=== PATIENT | female | born 1975 | race Caucasian/White ===

== ENCOUNTER 2016-08-20 09:50 | Emergency (ER) | payer BC ==
[~2016-08-20] VITALS: Ht 154.9 cm; Wt 87.0 kg
[2016-08-20 09:55] VITALS: BP 163/113; PULSE 132; RESP 16; TEMP 99.7; O2SAT 97
[2016-08-20] MEDS ORDERED: SODIUM CHLOR 0.9% 1000 ML INJ 1,000 ML IV SCH (10:09)
[2016-08-20 10:14] VITALS: O2SAT 98
[2016-08-20] MEDS ORDERED: FAMOTIDINE 20 MG/2 ML VIAL IV PUSH ONE (10:15)
[2016-08-20] MEDS ORDERED: ONDANSETRON HCL 4 MG/2 ML VIAL IVP ONE (10:15)
[2016-08-20] MEDS ORDERED: DICYCLOMINE HCL 10 MG CAP PO ONE (10:15)
[2016-08-20] MEDS ORDERED: SODIUM CHLORIDE 0.9% FLUSH 10 ML FLUSH IV FLUSH PRN (10:15)
--- NOTE | 2016-08-20 10:16 | PD ---
HPI Chief Complaint: GI Complaint Time Seen by Provider: 10:01 Travel History International Travel<30 days: No Contact w/Intl Traveler<30days: No Traveled to known affect area: No History of Present Illness HPI The patient is a 41-year-old female who presents emergency department for nausea, vomiting, diarrhea, and intermittent abdominal pain and cramping. The patient states her symptoms started at approximately 9 PM last night with nausea that was followed by vomiting. The patient then had vomiting throughout the night, ending this morning approximate 7 AM. The patient did take a Phenergan 12.5 mg tablet at home with mild alleviation of her symptoms. She also complains of diarrhea which she describes as loose to watery, dark, without any visible blood. She also notes a foul smell to the diarrhea. She does state her son had an episode of nausea and vomiting earlier this week, but had no diarrhea and his symptoms improved within 24 hours. She denies any recent international travel, drinking well water, or taking antibiotics. She denies any previous history of C. difficile. She does have a previous history of section, denies any other abdominal surgeries. She denies any coming fever, chills, or sweats. Symptoms are moderate, slightly alleviated by Phenergan, and possibly exacerbated by exposure to viral gastroenteritis earlier in the week that affected her son. [facility] Past Medical History Narrative Medical On Wellbutrin for weight loss Medical History: Denies Significant Hx ?: Not LMP: 08/15/2016 Past Surgical History Narrative Surgical Social History Tobacco Use: No Allergies-Medications (Allergen,Severity, Reaction): Coded Allergies: No Known Allergies (Verified , 08/20/16) Reported Meds & Prescriptions Reported Meds & Active Scripts Active Reported [Birthcontrol] 1 Tab PO DAILY Wellbutrin Xl 24 HR (Bupropion HCl) 150 Mg Tab 150 Mg PO DAILY Review of Systems Except as stated in HPI: all other systems reviewed are Neg General / Constitutional: No: Fever, Chills Cardiovascular: No: Chest Pain or Discomfort Respiratory: No: Shortness of Breath Gastrointestinal: Positive: Nausea, Vomiting, Diarrhea, Abdominal Pain Genitourinary: No: Dysuria Physical Exam Narrative GENERAL: Awake, alert, pleasant 41-year-old female who appears her stated age and is in no acute respiratory distress. SKIN: Focused skin assessment warm/dry. HEAD: Atraumatic. Normocephalic. EYES: Pupils equal and round. No scleral icterus. No injection or drainage. ENT: No nasal bleeding or discharge. Dry mucous membranes. NECK: Trachea midline. No JVD. CARDIOVASCULAR: Regular, tachycardic with a heart rate of 120. RESPIRATORY: No accessory muscle use. Clear to auscultation. Breath sounds equal bilaterally. GASTROINTESTINAL: Abdomen soft, mild epigastric tenderness, no rebound tenderness. No guarding or rigidity. MUSCULOSKELETAL: No obvious deformities. No clubbing. No cyanosis. No edema. NEUROLOGICAL: Awake and alert. No obvious cranial nerve deficits. Motor grossly within normal limits. Normal speech. PSYCHIATRIC: Appropriate mood and affect; insight and judgment normal. Data Data Last Documented VS Vital Signs Date Time Temp Pulse Resp B/P Pulse Ox O2 Delivery O2 Flow Rate FiO2 08/20/16 11:02 99 18 151/86 98 Room Air 08/20/16 09:55 99.7 Orders Complete Blood Count With Diff (08/20/16 10:09) Comprehensive Metabolic Panel (08/20/16 10:09) Lipase (08/20/16 10:09) Lactic Acid (08/20/16 10:09) Urinalysis - C+S If Indicated (08/20/16 10:09) Iv Access Insert/Monitor (08/20/16 10:09) Ecg Monitoring (08/20/16 10:09) Oximetry (08/20/16 10:09) Ondansetron Inj (Zofran Inj) (08/20/16 10:15) Sodium Chlor 0.9% 1000 Ml Inj (Ns 1000 M (08/20/16 10:09) Sodium Chloride 0.9% Flush (Ns Flush) (08/20/16 10:15) Famotidine Inj (Pepcid Inj) (08/20/16 10:15) Dicyclomine (Bentyl) (08/20/16 10:15) Urine Culture (08/20/16 10:20) Sodium Chlor 0.9% 1000 Ml Inj (Ns 1000 M (08/20/16 11:00) Ketorolac Inj (Toradol Inj) (08/20/16 11:00) Labs Laboratory Tests Test 08/20/16 10:20 White Blood Count 8.2 TH/MM3 Red Blood Count 5.11 MIL/MM3 Hemoglobin 14.8 GM/DL Hematocrit 43.0 % Mean Corpuscular Volume 84.3 FL Mean Corpuscular Hemoglobin 29.0 PG Mean Corpuscular Hemoglobin 34.5 % Concent Red Cell Distribution Width 11.5 % Platelet Count 349 TH/MM3 Mean Platelet Volume 7.5 FL Neutrophils (%) (Auto) 84.9 % Lymphocytes (%) (Auto) 5.7 % Monocytes (%) (Auto) 6.9 % Eosinophils (%) (Auto) 0.2 % Basophils (%) (Auto) 2.3 % Neutrophils # (Auto) 6.9 TH/MM3 Lymphocytes # (Auto) 0.5 TH/MM3 Monocytes # (Auto) 0.6 TH/MM3 Eosinophils # (Auto) 0.0 TH/MM3 Basophils # (Auto) 0.2 TH/MM3 CBC Comment DIFF FINAL Differential Comment Urine Collection Type CLEAN CATCH Urine Color YELLOW Urine Turbidity CLEAR Urine pH 6.0 Urine Specific [place] 1.032 Urine Protein 30 mg/dL Urine Glucose (UA) NEG mg/dL Urine Ketones NEG mg/dL Urine Occult Blood LARGE Urine Nitrite NEG Urine Bilirubin NEG Urine Leukocyte Esterase TRACE Urine RBC 20-24 /hpf Urine WBC 20-24 /hpf Urine Squamous Epithelial > 8 /hpf Cells Urine Bacteria FEW /hpf Urine Mucus FEW /lpf Microscopic Urinalysis Comment CULTURE INDICATED Urine Collection Time 10:20 Sodium Level 141 MEQ/L Potassium Level 3.3 MEQ/L Chloride Level 105 MEQ/L Carbon Dioxide Level 28.0 MEQ/L Anion Gap 8 MEQ/L Blood Urea Nitrogen 15 MG/DL Creatinine 0.95 MG/DL Estimat Glomerular Filtration 65 ML/MIN Rate Random Glucose 129 MG/DL Lactic Acid Level 1.4 mmol/L Calcium Level 8.5 MG/DL Total Bilirubin 0.7 MG/DL Aspartate Amino Transf 22 U/L (AST/SGOT) Alanine Aminotransferase 41 U/L (ALT/SGPT) Alkaline Phosphatase 69 U/L Total Protein 7.6 GM/DL Albumin 3.5 GM/DL Lipase 166 U/L [facility] Medical Decision Making Medical Screen Exam Complete: Yes Emergency Medical Condition: Yes Medical Record Reviewed: Yes Interpretation(s) Laboratory Tests Test 08/20/16 10:20 White Blood Count 8.2 TH/MM3 Red Blood Count 5.11 MIL/MM3 Hemoglobin 14.8 GM/DL Hematocrit 43.0 % Mean Corpuscular Volume 84.3 FL Mean Corpuscular Hemoglobin 29.0 PG Mean Corpuscular Hemoglobin 34.5 % Concent Red Cell Distribution Width 11.5 % Platelet Count 349 TH/MM3 Mean Platelet Volume 7.5 FL Neutrophils (%) (Auto) 84.9 % Lymphocytes (%) (Auto) 5.7 % Monocytes (%) (Auto) 6.9 % Eosinophils (%) (Auto) 0.2 % Basophils (%) (Auto) 2.3 % Neutrophils # (Auto) 6.9 TH/MM3 Lymphocytes # (Auto) 0.5 TH/MM3 Monocytes # (Auto) 0.6 TH/MM3 Eosinophils # (Auto) 0.0 TH/MM3 Basophils # (Auto) 0.2 TH/MM3 CBC Comment DIFF FINAL Differential Comment Urine Collection Type CLEAN CATCH Urine Color YELLOW Urine Turbidity CLEAR Urine pH 6.0 Urine Specific [place] 1.032 Urine Protein 30 mg/dL Urine Glucose (UA) NEG mg/dL Urine Ketones NEG mg/dL Urine Occult Blood LARGE Urine Nitrite NEG Urine Bilirubin NEG Urine Leukocyte Esterase TRACE Urine RBC 20-24 /hpf Urine WBC 20-24 /hpf Urine Squamous Epithelial > 8 /hpf Cells Urine Bacteria FEW /hpf Urine Mucus FEW /lpf Microscopic Urinalysis Comment CULTURE INDICATED Urine Collection Time 10:20 Sodium Level 141 MEQ/L Potassium Level 3.3 MEQ/L Chloride Level 105 MEQ/L Carbon Dioxide Level 28.0 MEQ/L Anion Gap 8 MEQ/L Blood Urea Nitrogen 15 MG/DL Creatinine 0.95 MG/DL Estimat Glomerular Filtration 65 ML/MIN Rate Random Glucose 129 MG/DL Lactic Acid Level 1.4 mmol/L Calcium Level 8.5 MG/DL Total Bilirubin 0.7 MG/DL Aspartate Amino Transf 22 U/L (AST/SGOT) Alanine Aminotransferase 41 U/L (ALT/SGPT) Alkaline Phosphatase 69 U/L Total Protein 7.6 GM/DL Albumin 3.5 GM/DL Lipase 166 U/L Differential Diagnosis Differential diagnosis includes gastroenteritis, viral syndrome, food poisoning , hepatitis, pancreatitis, C. difficile, enteritis, colitis, dehydration, electrolyte abnormality, food borne illness. Narrative Course IV was established, labs are drawn and sent, and the patient was placed on cardiac telemetry monitoring and continuous pulse oximetry monitoring. The patient was administered Zofran and Bentyl with IV fluids for her symptoms. She declined pain medication. The patient's laboratory evaluation is unremarkable except for mildly low potassium. The patient's heart rate did improve to 101, she was administered a second liter of IV fluids. Lactic acid is unremarkable. She had no diarrhea in the emergency department, therefore, C. difficile was not ordered. The patient be discharged home on Zofran, is advised to have a clear liquid diet and advance as tolerated. She has appointment tomorrow with her primary physician in the morning, she is advised to keep that appointment and return sooner if symptoms worsen or progress. She will also be provided a work excuse for 2 days. Diagnosis Primary Impression: Gastroenteritis Patient Instructions: General Instructions Additional Instructions: Medications as directed. Clear liquid diet and advance as tolerated. Please provide the patient a copy of her labs at discharge. Return sooner if symptoms worsen or progress. Work excuse for 2 days. Med/Other Pt SpecificInfo: Prescription(s) given Scripts Ondansetron Odt (Zofran Odt)4 Mg Tab4 Mg SL Q6HR PRN (Nausea/Vomiting) #10 TAB Ref 0 Prov:Mars Wang MD 08/20/16 Disposition: 01 DISCHARGE HOME Condition: Stable Mars Wang MD Aug 20, 2016 10:16
[2016-08-20] MEDS ORDERED: BIRTHCONTROL PO (10:17)
[2016-08-20] MEDS ORDERED: BUPR150XL PO (10:17)
[2016-08-20] MEDS ORDERED: [UNRECOGNIZED DRUG - REMARK] (10:17)
[2016-08-20 10:28] LABS: BLOOD, URINE LARGE (NEG); GLUCOSE,URINE NEG (NEG); KETONE, URINE NEG (NEG); NITRITE,URINE NEG (NEG)
[2016-08-20 10:29] LABS: AUTOMATED NEUTROPHIL # 6.9 TH/MM3 (1.8-7.7); BASOPHIL # 0.2 TH/MM3 (0-0.2); BASOPHIL % 2.3 % (0.0-2.0); EOSINOPHIL % 0.2 % (0.0-4.0); LYMPH % 5.7 % (9.0-44.0); LYMPHOCYTE # 0.5 TH/MM3 (1.0-4.8); MEAN CELL VOLUME 84.3 FL (80.0-100.0); MEAN CORPUSCULAR HGB CONC 34.5 % (32.0-36.0); MONO % 6.9 % (0.0-8.0); NEUT % 84.9 % (16.0-70.0); PLATELET COUNT 349 TH/MM3 (150-450); RED BLOOD COUNT 5.11 MIL/MM3 (4.00-5.30); RED CELL DISTRIBUTION WIDTH 11.5 % (11.6-17.2); WHITE BLOOD COUNT 8.2 TH/MM3 (4.0-11.0)
[2016-08-20 10:34] LABS: HEMO FLAGS DIFF FINAL
[2016-08-20 10:36] LABS: CHLORIDE 105 MEQ/L (98-107); POTASSIUM 3.3 MEQ/L (3.5-5.1); SODIUM (NA) 141 MEQ/L (136-145)
[2016-08-20 10:38] LABS: METHOD OF COLLECTION CLEAN CATCH; URINE COLOR YELLOW (YELLW/STRAW)
[2016-08-20 10:40] LABS: ANION GAP 8 MEQ/L (5-15); BLOOD UREA NITROGEN 15 MG/DL (7-18)
[2016-08-20 10:42] LABS: BACTERIA, URINE FEW /hpf; COMMENT (UR) CULTURE INDICATED; CULTURE IF INDICATED CULTURE INDICATED; MUCUS URINE FEW /lpf (OCC); SQUAMOUS EPITHELIAL CELL URINE > 8 /hpf (0-5)
[2016-08-20 10:43] LABS: ALT (GPT) 41 U/L (10-53); AST (GOT) 22 U/L (15-37); GLOMERULAR FILTRATION RATE 65 ML/MIN (>89)
[2016-08-20 10:45] LABS: TOTAL BILIRUBIN ADULT 0.7 MG/DL (0.2-1.0)
[2016-08-20 10:46] LABS: ALKALINE PHOSPHATASE 69 U/L (45-117)
[2016-08-20] MEDS ORDERED: SODIUM CHLOR 0.9% 1000 ML INJ 1,000 ML IV ONE (11:00)
[2016-08-20] MEDS ORDERED: KETOROLAC TROMETHAMINE 30 MG/ML (IVP) VIAL IV PUSH ONE (11:00)
[2016-08-20 11:02] VITALS: BP 151/86; PULSE 99; RESP 18; O2SAT 98
[2016-08-20] MEDS ORDERED: ZOFR4TAB3 SL (11:14)
== END 2016-08-20 11:53 | disposition home or self-care (01) ==
LOC: PHED 09:50
DX: K52.9 Noninfective gastroenteritis and colitis, unspecified (principal); R10.13 Epigastric pain; R00.0 Tachycardia, unspecified
CPT/HCPCS: 80053; 81001; 83605; 83690; 85025; 87086; 96361; 96374; 96375; 99284; J1885; J2405; J7030